=== PATIENT | male | born 1975 | race Hispanic/Latino ===

== ENCOUNTER → 2020-04-01 | Outpatient (CLI) | payer OTHER ==
--- NOTE | 2020-04-01 14:44 | Diagnostic Imaging Report ---
TECHNIQUE: Magnetic resonance imaging of the RIGHT KNEE was performed WITHOUT injected contrast. HISTORY: Right knee pain COMPARISON: None available. FINDINGS: LIGAMENTS AND TENDONS: ACL: Intact PCL: Intact Collateral ligaments: Intact Iliotibial band: Unremarkable Popliteal tendon: Intact Extensor mechanism: Intact JOINT: Menisci: Medial: Free margin horizontal tear of the body Lateral: Intact Articular Cartilage: Medial Compartment: No focal defect. Lateral Compartment: No focal defect. Patellofemoral Compartment: No focal defect. Joint Fluid: Moderate joint effusion. BONE: Lateral tibial plateau fracture with mild depression, approximately 2 mm, at the articular surface. No significantly displaced fragments. SOFT TISSUES: Edema at the medial aspect of the knee. IMPRESSION: Lateral tibial plateau fracture with mild depression at the articular surface. No significantly displaced fragments. Joint effusion. Medial meniscus free margin horizontal tear of the body Signed by: Dr. Ra Fisher M.D. on 04/01/2020 2:40 PM
--- NOTE | 2020-04-01 15:11 | Diagnostic Imaging Report ---
TECHNIQUE: Magnetic resonance imaging of the LEFT foot was performed WITHOUT injected contrast. HISTORY: Pain COMPARISON: None available. DISCUSSION: No fracture or malalignment. Soft tissue swelling/hematoma along the medial aspect of the ankle. Additional edema along the lateral aspect of the ankle. The tibiofibular, anterior talofibular, and calcaneofibular ligaments are intact. The deltoid ligament is intact. The posterior tibial and flexor tendons are intact. The peroneal tendons are intact. The superior retinaculum is intact. The extensor tendons are intact. The Achilles tendon is intact. The sinus Tarsi is clear. The tarsal tunnel is clear. The plantar fascia is unremarkable. IMPRESSION: Soft tissue edema/hematoma along the medial ankle. No fracture. Signed by: Dr. Ra Fisher M.D. on 04/01/2020 3:08 PM
== END ==
LOC: MRI 13:17
PROVIDERS: ATTEND Family Medicine
DX: S89.91XA Unspecified injury of right lower leg, initial encounter (principal); W11.XXXA Fall on and from ladder, initial encounter

== ENCOUNTER 2020-07-22 09:48 | Outpatient (RCR) | payer OTHER | END 2020-07-23 | LOC: PT 09:48 | PROVIDERS: ATTEND Specialist | DX: S82.141A Displaced bicondylar fracture of right tibia, initial encounter for closed fracture (principal); S90.32XA Contusion of left foot, initial encounter ==

== ENCOUNTER 2020-07-29 09:55 | Outpatient (RCR) | payer OTHER | END 2020-08-23 | LOC: PT 09:55 | PROVIDERS: ATTEND Specialist | DX: S82.141A Displaced bicondylar fracture of right tibia, initial encounter for closed fracture (principal); S90.32XA Contusion of left foot, initial encounter ==